=== PATIENT | female | born 1960 | race Caucasian/White ===

== ENCOUNTER 2017-12-27 01:30 | Observation (INO) | payer SELFPAY ==
[2017-12-28] MEDS: REGADENOSON INJ 0.4 MG/5 ML SYR IV (01:41)
[2017-12-28] MEDS ORDERED: ONDANSETRON HCL 4 MG/2 ML VIAL IV PUSH (01:45)
[2017-12-28] MEDS ORDERED: SODIUM CHLORIDE 0.9% FLUSH 10 ML FLUSH IV FLUSH (01:45)
[2017-12-28] MEDS ORDERED: GLUCAGON 1 MG/ML VIAL OTHER ×2 (01:45→08:15)
[2017-12-28] MEDS ORDERED: NITROGLYCERIN 0.4 MG SL 25 TABS/BTL SL (01:45)
[2017-12-28] MEDS ORDERED: DEXTROSE 50% IN WATER 50 ML VIAL(D50) IV PUSH ×2 (01:45→08:15)
[2017-12-28] MEDS ORDERED: MORPHINE SULFATE 4 MG/ML INJ IV PUSH (01:45)
[2017-12-28] MEDS: HEPARIN SODIUM - SQ 10,000 UNITS/ML VIAL SQ ×3 (02:15→17:12)
[2017-12-28] MEDS: SODIUM CHLOR 0.9% 1000 ML INJ 1,000 ML IV ×3 (02:30→17:45)
[2017-12-28] MEDS: ACETAMINOPHEN/HYDROcodone 325 MG/7.5 MG TAB PO (02:44)
[2017-12-28 05:22] LABS: LIPASE 931 U/L (73-393)
[2017-12-28] MEDS: SODIUM CHLORIDE 0.9% FLUSH 10 ML FLUSH IV FLUSH ×2 (08:26→21:00)
[2017-12-28] MEDS: LISINOPRIL 10 MG TAB PO (08:26)
[2017-12-28] MEDS: KETOROLAC TROMETHAMINE 30 MG/ML (IVP) VIAL IV PUSH (08:45)
[2017-12-28] MEDS: DIATRIZOATE MEGLUM/DIATRIZOATE SOD 9 ML CUP PO (09:23)
[2017-12-28] MEDS: ACETAMINOPHEN 500 MG CPLT PO (11:30)
[2017-12-28 11:35] LABS: CHOLESTEROL 222 MG/DL (120-200); TRIGLYCERIDES 448 MG/DL (42-150)
[2017-12-28 11:44] LABS: HDL CHOLESTEROL 33.1 MG/DL (40.0-60.0)
[2017-12-28] MEDS: INSULIN ASPART SUPPLEMENTAL SCALE SQ ×3 (12:00→21:00)
[2017-12-28] MEDS: PANTOPRAZOLE SODIUM 40 MG VIAL IV PUSH (12:00)
[2017-12-28] MEDS: IOHEXOL 350 MG/ML 10 ML VIAL (for RAD DIAG) IVCONTRAST (14:23)
[2017-12-28] MEDS: ASPIRIN 325 MG TAB PO (15:05)
[2017-12-28] MEDS: ATORVASTATIN 20 MG TAB PO (21:13)
[2017-12-29] MEDS: SODIUM CHLOR 0.9% 1000 ML INJ 1,000 ML IV (01:45)
[2017-12-29] MEDS: HEPARIN SODIUM - SQ 10,000 UNITS/ML VIAL SQ (02:00)
[2017-12-29 07:16] LABS: AUTOMATED NEUTROPHIL # 4.9 TH/MM3 (1.8-7.7); BASOPHIL # 0.1 TH/MM3 (0-0.2); EOSINOPHIL # 0.3 TH/MM3 (0-0.4); EOSINOPHIL % 4.5 % (0.0-4.0); HEMATOCRIT 34.4 % (35.0-46.0); HEMO FLAGS DIFF FINAL; HEMOGLOBIN 12.1 GM/DL (11.6-15.3); LYMPH % 27.1 % (9.0-44.0); LYMPHOCYTE # 2.1 TH/MM3 (1.0-4.8); MEAN CORPUSCULAR HEMOGLOBIN 29.8 PG (27.0-34.0); MEAN CORPUSCULAR HGB CONC 35.1 % (32.0-36.0); MEAN PLATELET VOLUME 9.4 FL (7.0-11.0); MONOCYTE # 0.3 TH/MM3 (0-0.9); NEUT % 63.4 % (16.0-70.0); PLATELET COUNT 259 TH/MM3 (150-450); RED BLOOD COUNT 4.05 MIL/MM3 (4.00-5.30); RED CELL DISTRIBUTION WIDTH 12.3 % (11.6-17.2); WHITE BLOOD COUNT 7.7 TH/MM3 (4.0-11.0)
[2017-12-29 07:26] LABS: CHLORIDE 110 MEQ/L (98-107); POTASSIUM 4.5 MEQ/L (3.5-5.1); SODIUM (NA) 140 MEQ/L (136-145)
[2017-12-29 07:29] LABS: CALCIUM 8.8 MG/DL (8.5-10.1)
[2017-12-29 07:30] LABS: ALBUMIN 2.6 GM/DL (3.4-5.0); ANION GAP 6 MEQ/L (5-15); BICARBONATE 24.3 MEQ/L (21.0-32.0); BLOOD UREA NITROGEN 20 MG/DL (7-18); GLUCOSE,RANDOM 196 MG/DL (74-106); LIPASE 322 U/L (73-393)
[2017-12-29 07:33] LABS: ALT (GPT) 12 U/L (10-53); AST (GOT) 12 U/L (15-37); CREATININE 0.76 MG/DL (0.50-1.00); GLOMERULAR FILTRATION RATE 78 ML/MIN (>89)
[2017-12-29 07:34] LABS: TOTAL BILIRUBIN ADULT 0.2 MG/DL (0.2-1.0)
[2017-12-29 07:36] LABS: ALKALINE PHOSPHATASE 93 U/L (45-117)
[2017-12-29] MEDS: INSULIN ASPART SUPPLEMENTAL SCALE SQ (08:05)
[2017-12-29] MEDS: SODIUM CHLORIDE 0.9% FLUSH 10 ML FLUSH IV FLUSH (08:06)
[2017-12-29] MEDS: ASPIRIN 325 MG TAB PO (08:06)
[2017-12-29] MEDS: LISINOPRIL 10 MG TAB PO (08:06)
== END 2017-12-29 09:15 | disposition home or self-care (01) ==
LOC: NEDDLT 01:30 → PH3B 12-28 01:40
PROVIDERS: Hospitalist
DX: K85.90 Acute pancreatitis without necrosis or infection, unspecified (principal); R07.9 Chest pain, unspecified; E11.9 Type 2 diabetes mellitus without complications; R16.0 Hepatomegaly, not elsewhere classified; R94.39 Abnormal result of other cardiovascular function study
CPT/HCPCS: 71045; 74177; 78452; 80053; 80061; 82550; 82552; 82948; 83690; 83735; 84484; 85025; 85610; 85730; 93005; 93017; 96361; 96372; 96374; 96375; 99285-25